=== PATIENT | female | born 1965 | race African-American/Black ===

== ENCOUNTER 2017-01-23 16:26 | Emergency (ER) | payer OTHER ==
[~2017-01-23] VITALS: Ht 170.2 cm; Wt 70.0 kg
[~2017-01-23 16:26] MED LIST: ALBU6.7H INH; DOCU1CAP39 PO; FERR65TA PO; IBUP600 PO; MEDR10 PO; OXYC1SOL5 PO
[2017-01-23 16:27] VITALS: BP 213/128; PULSE 85; RESP 20; TEMP 98.7; O2SAT 98
[2017-01-23 18:16] VITALS: BP 210/119; PULSE 82; RESP 20; O2SAT 98
[2017-01-23] MEDS ORDERED: FERR325T8 PO (18:21)
--- NOTE | 2017-01-23 18:41 | PD ---
HPI Chief Complaint: Edema Time Seen by Provider: 18:40 Travel History International Travel<30 days: No Contact w/Intl Traveler<30days: No Traveled to known affect area: No History of Present Illness HPI 51 YO F presents to the ED for evaluation of 1 week history of 7/10 pain and swelling of the right knee. Worsened by ambulation. Patient can identify no acute injury. She denies fever, chills, CP, palpitation, SOB, nausea, vomiting. She works on her feet. She endorses one similar episode approximately one year ago that resolved on its own. She treated at home with two Alleve just before presentation. PFSH Past Medical History Autoimmune Disease: No Blood Disorders: No Anxiety: No Depression: No Heart Rhythm Problems: No Cancer: No Cardiovascular Problems: No High Cholesterol: No Chemotherapy: No Chest Pain: No Congestive Heart Failure: No COPD: Yes Diabetes: No Diminished Hearing: No Endocrine: No Genitourinary: No Hypertension: Yes Immune Disorder: No Musculoskeletal: No Neurologic: No Psychiatric: No Reproductive: No Respiratory: No Immunizations Current: Yes Radiation Therapy: No Thyroid Disease: No Tetanus Vaccination: > 5 Years ?: Not : 2 Para: 2 Dilation and Curettage (D&C): Yes Tubal Ligation: Yes Past Surgical History Abdominal Surgery: No Ear Surgery: No Endocrine Surgery: No Eye Surgery: No Genitourinary Surgery: No Gynecologic Surgery: Yes (tubal ligation) Hysterectomy: Yes Oral Surgery: No Pacemaker: No Thoracic Surgery: No Tonsillectomy: Yes Other Surgery: Yes (cervical ablation) Social History Alcohol Use: Yes (OCCASIONAL ) Tobacco Use: Yes (QUIT 1 YEAR AGO 2015) Substance Use: No Allergies-Medications (Allergen,Severity, Reaction): Coded Allergies: codeine (Unverified Allergy, Mild, 01/23/17) Reported Meds & Prescriptions Reported Meds & Active Scripts Active Hydrochlorothiazide 25 Mg Tab 25 Mg PO DAILY Reported Ferrous Sulfate 325 Mg (65 Mg Iron) Tablet 325 Mg PO TIDPC Review of Systems Except as stated in HPI: all other systems reviewed are Neg Physical Exam Narrative GENERAL: Well-nourished, well-developed pleasant black female in no acute distress. SKIN: Focused skin assessment warm/dry. HEAD: Normocephalic. EYES: No scleral icterus. No injection or drainage. NECK: Supple, trachea midline. No JVD or lymphadenopathy. CARDIOVASCULAR: Regular rate and rhythm without murmurs, gallops, or rubs. RESPIRATORY: Breath sounds equal bilaterally. No accessory muscle use. GASTROINTESTINAL: Abdomen soft, non-tender, nondistended. MUSCULOSKELETAL: No cyanosis, or edema. FOCUSED RIGHT LOWER EXTREMITY EXAM: 2+ DP pulse. 1+ edema in the ankle. Positive Lindsey sign. No patellar balloting. Tender to palpation in the popliteal area. No palpable masses. Patient retains full, active range of motion of the knee and ankle joints. Pain is elicited with flexion of the knee. BACK: Nontender without obvious deformity. No CVA tenderness. Data Data Last Documented VS Vital Signs Date Time Temp Pulse Resp B/P (MAP) Pulse Ox O2 Delivery O2 Flow Rate FiO2 01/23/17 20:08 78 22 207/116 (146) 98 01/23/17 18:16 Room Air 01/23/17 16:27 98.7 Orders Orders Knee, Complete (4vws) (01/23/17 18:48) Ice/Cold Pack (01/23/17 18:48) Us Leg Venous Doppler (01/23/17 18:48) Acetamin-Hydrocod 325-5 Mg ([place] 5-325 (01/23/17 19:00) Lai Bandage (01/23/17 20:20) MDM Medical Decision Making Medical Screen Exam Complete: Yes Emergency Medical Condition: Yes Differential Diagnosis OA versus Viera cyst versus DVT versus internal derangement versus other Narrative Course 51 YO F presents to the ED for evaluation of 1 week history of 7/10 pain and swelling of the right knee. Worsened by ambulation. Patient can identify no acute injury. She denies fever, chills, CP, palpitation, SOB, nausea, vomiting. She works on her feet. She endorses one similar episode approximately one year ago that resolved on its own. She treated at home with two Alleve just before presentation. Vitals reviewed. Patient's hypertensive 213/128 2 207/116 on presentation. Physical exam reveals a nontoxic-appearing black female in no acute distress. Focused right lower extremity exam reveals 2 + DP pulse. 1+ edema in the ankle. Positive Lindsey sign. No patellar balloting. Tender to palpation in the popliteal area. No palpable masses. Patient retains full, active range of motion of the knee and ankle joints. Pain is elicited with flexion of the knee. I question the patient extensively regarding cardiac symptoms which are all negative. Ultrasound negative for DVT. X-ray reveals a small knee effusion. Patient is instructed to RICE the knee and provided with an Lai wrap. She was prescribed HCTZ 25 mg once a day. She is instructed to keep a blood pressure log to present to the primary care provider. She was given follow-up information for the [facility]. She indicated understanding of instructions and is agreeable to the care plan. She is stable and discharged home. Diagnosis Primary Impression: HTN (hypertension) Qualified Codes: I10 - Essential (primary) hypertension Additional Impression: Effusion, right knee Referrals: [facility] [address] Patient Instructions: General Instructions, Hypertension (ED), Swollen Knee Joint (ED) Additional Instructions: Rest, ice, compress, elevate the extremity. Apply ice no longer than 10-15 minutes per hour a few times a day. 800 mg ibuprofen up to 3 times a day as needed to educe pain and inflammation. Return to normal, gentle activity as tolerated. No running, jumping activities for the next few weeks. Take HCTZ as prescribed. Take your blood pressure at regular intervals and keep a diary to show to your PCP. Follow up with orthopedist, primary care provider or [facility] as discussed. Return to the ED for any urgent or emergent medical condition. Med/Other Pt SpecificInfo: Prescription(s) given Scripts Hydrochlorothiazide (Hydrochlorothiazide) 25 Mg Tab 25 MG PO DAILY, #30 TAB 0 Refills Prov: Lashonda Red MD 01/23/17 Disposition: 01 DISCHARGE HOME Condition: Stable Connie Sewell Jan 23, 2017 18:40
[2017-01-23] MEDS ORDERED: ACETAMINOPHEN/HYDROcodone 325 MG/5 MG TAB PO ONE (19:00)
--- NOTE | 2017-01-23 19:29 | RADRPT ---
EXAM DATE/TIME: 01/23/2017 19:09 [facility] COMPARISON: No previous studies available for comparison. INDICATIONS : Right knee pain, fall. MEDICAL HISTORY : None. SURGICAL HISTORY : None. ENCOUNTER: Initial ACUITY: 1 year PAIN SCORE: 7/10 LOCATION: Right posterior knee FINDINGS: No acute fracture or subluxation seen of the right knee. 3 x 7 mm nonacute ossicle seen near the prox imal MCL. This may be related to an old MCL injury. A small joint effusion is seen. CONCLUSION: No acute fracture or subluxation of the left knee. Small, nonspecific joint effusion. Rey Suresh MD on January 23, 2017 at 19:26 Board Certified Radiologist. This report was verified electronically.
--- NOTE | 2017-01-23 20:03 | RADRPT ---
EXAM DATE/TIME: 01/23/2017 19:33 [facility] COMPARISON: No previous studies available for comparison. INDICATIONS : Right leg pain. MEDICAL HISTORY : Chronic obstructive pulmonary disease. Glasses.Violent behavior. SURGICAL HISTORY : Tonsillectomy. Tubal ligation. Hysterectomy. Dilation and curretage. Right fifth finger surgery. Cer vical ablation. ENCOUNTER: Initial ACUITY: 1 month PAIN SCORE: 7/10 LOCATION: Right leg. TECHNIQUE: Venous ultrasound of the leg was performed from the inguinal ligament to the proximal calf. Real-al e, color Doppler and spectral tracing, compression and augmentation techniques were used. FINDINGS: There is normal compressibility of the deep venous system from the inguinal region to the proximal ca lf. No echogenic clot is seen in the lumen of the common femoral, femoral, popliteal, and posterior tibial veins. There is a normal response of the venous system to proximal and distal augmentation an d respiration. CONCLUSION: No DVT of the right lower extremity. Rey Suresh MD on January 23, 2017 at 20:02 Board Certified Radiologist. This report was verified electronically.
[2017-01-23 20:08] VITALS: BP 207/116; PULSE 78; RESP 22; O2SAT 98
[2017-01-23] MEDS ORDERED: HYDR25TA5 PO (20:16)
== END 2017-01-23 20:49 | disposition home or self-care (01) ==
LOC: NEPC 16:26
DX: I10 Essential (primary) hypertension (principal); M25.461 Effusion, right knee; M79.604 Pain in right leg; Z87.891 Personal history of nicotine dependence
CPT/HCPCS: 73564; 93971; 99285